=== PATIENT | female | born 1945 | race Caucasian/White ===

== ENCOUNTER 2017-07-17 09:19 | Emergency (ER) | payer MEDICARE, OTHER ==
[2017-07-17 10:25] LABS: BASOPHILS % (AUTO) 0.9 %; EOSINOPHILS # (AUTO) 0.2 10^3/uL (0.0-0.7); HGB - HEMOGLOBIN 13.9 g/dL (12.0-16.0); LYMPHOCYTES # (AUTO) 1.5 10^3/uL (1.5-3.5); LYMPHOCYTES % (AUTO) 28.1 %; MEAN CORPUSCULAR HEMOGLOBIN 31.4 pg (27.0-31.0); MEAN CORPUSCULAR HGB CONC 34.1 g/dL (32.0-36.0); MEAN PLATELET VOLUME 7.7 fL (7.9-10.8); MONOCYTES # (AUTO) 0.4 10^3/uL (0.0-1.0); MONOCYTES % (AUTO) 7.8 %; NEUTROPHILS # (AUTO) 3.3 10^3/uL (1.5-6.6); NEUTROPHILS % (AUTO) 60.2 %; PLT - PLATELET COUNT 168 10^3/uL (130-450); RED BLOOD COUNT 4.43 10^6/uL (4.20-5.40); RED CELL DISTRIBUTION WIDTH 13.8 % (12.0-15.0); WHITE BLOOD COUNT 5.5 x10^3/uL (4.8-10.8)
--- NOTE | 2017-07-17 10:25 | ED Physician Documentation ---
History of Present Illness - Stated complaint Stated Complaint: LOW BP - Chief complaint Chief Complaint: General - Additonal information Additional information: hx from pt 72 female to ER for near syncope states 3 weeks ago her neurologist at [facility] changed her neurontin from 4 C to 5 X daily as well as her 5 X daily sinemet from reg to ER preparation since last week she has had body aches and felt run down today in clici felt faint and had a BP 90/50 and was orthostatic some soa today as well no fever no cough no NVD no bloody black BM no urinary sx Review of Systems Constitutional: reports: Myalgias, Fatigue. denies: Fever, Chills Cardiac: denies: Chest pain / pressure, Palpitations Respiratory: reports: Dyspnea. denies: Cough GI: denies: Abdominal Pain, Nausea, Vomiting, Diarrhea, Bloody / black stool : denies: Dysuria Neurologic: reports: Generalized weakness, Near syncope. denies: Focal weakness , Numbness, Headache PD PAST MEDICAL HISTORY - Past Medical History Cardiovascular: Hypertension, High cholesterol Respiratory: Sleep apnea Neuro: Parkinson's, Other Endocrine/Autoimmune: HyPOthyroidism Musculoskeletal: Chronic back pain Other Past Medical History: hx MAC - Past Surgical History Past Surgical History: Yes General: Colonoscopy Ortho: Knee replacement, Arthroscopic surgery - Present Medications Home Medications: Ambulatory Orders Medication Instructions Recorded Confirmed Clonazepam 2 mg PO DAILY 03/10/13 07/17/17 Levothyroxine Sodium [Synthroid] 100 mcg PO DAILY 03/10/13 07/17/17 Carbidopa/Levodopa 25/100 [Sinemet 07/17/17 25 mg/100 mg] Carbidopa/Levodopa ER 25/100 1.5 tab PO QID #84 tablet 07/17/17 [Sinemet Cr 25 mg/100 mg] Cephalexin [Keflex] 500 mg PO Q6H #28 capsule 07/17/17 Duloxetine HCl [Duloxetine HCl] 07/17/17 Fluticasone [Flonase] 1 sprays ABRIL DAILY 07/17/17 07/17/17 Gabapentin [Gabapentin] 07/17/17 Ropinirole HCl [Ropinirole ER] 2 mg PO 07/17/17 - Allergies Allergies/Adverse Reactions: Allergies Allergy/AdvReac Type Severity Reaction Status Date / Time codeine [Codeine] Allergy Intermediate unknown Verified 03/19/14 18:00 Penicillins Allergy Intermediate unknown Verified 03/19/14 18:00 Sulfa (Sulfonamide Allergy Intermediate unknown Verified 03/19/14 18:00 Antibiotics) iodine Allergy Unknown unknown Verified 03/19/14 18:00 - Social History Does the pt smoke?: No Smoking Status: Never smoker Does the pt drink ETOH?: No Does the pt have substance abuse?: No - Immunizations Immunizations are current?: Yes - POLST Patient has POLST: No PD ED PE NORMAL - Vitals Vital signs reviewed: Yes - General General: Alert and oriented X 3 - HEENT HEENT: PERRL - Neck Neck: Supple, no meningeal sign - Cardiac Cardiac: RRR - Respiratory Respiratory: No respiratory distress - Abdomen Abdomen: Soft, Non tender - Derm Derm: Normal color - Extremities Extremities: No deformity, Other (grace symm edema baseline per pt) - Neuro Neuro: Alert and oriented X 3 Results - Vitals Vitals: Vital Signs - 24 hr 07/17/17 07/17/17 07/17/17 09:22 09:45 10:52 Temperature 36.2 C L Heart Rate 70 66 68 Respiratory 16 18 18 Rate Blood Pressure 116/79 110/75 110/73 O2 Saturation 100 96 99 07/17/17 07/17/17 11:34 13:44 Temperature 36.1 C L Heart Rate 68 68 Respiratory 18 22 Rate Blood Pressure 114/76 131/82 H O2 Saturation 99 100 Oxygen O2 Source Room air - EKG (time done) 0950 Rate: Rate (enter#) Rhythm: Sinus tachycardia [place]: RAD Intervals: Normal [place], Wide QRS (borderline) Ischemia: Normal ST segments - Labs Labs: Laboratory Tests 07/17/17 07/17/17 07/17/17 10:17 10:17 10:17 WBC 5.5 RBC 4.43 Hgb 13.9 Hct 40.8 MCV 92.0 MCH 31.4 H MCHC 34.1 RDW 13.8 Plt Count 168 MPV 7.7 L Neut # 3.3 Lymph # 1.5 [place] # 0.4 Eos # 0.2 Baso # 0.0 Absolute Nucleated RBC 0.00 Nucleated RBC % 0.0 Sodium 139 Potassium 3.8 Chloride 103 Carbon Dioxide 28 Anion Gap 8.0 BUN 39 H Creatinine 1.0 Estimated GFR (MDRD) 55 L Glucose 101 H Calcium 9.6 Troponin I < 0.04 TSH Urine Color Urine Clarity Urine pH Ur Specific [place] Urine Protein Urine Glucose (UA) Urine Ketones Urine Occult Blood Urine Nitrite Urine Bilirubin Urine Urobilinogen Ur Leukocyte Esterase Urine RBC Urine WBC Ur Squamous Epith Cells Urine Bacteria Ur Microscopic Review Urine Culture Comments 07/17/17 07/17/17 10:17 10:35 WBC RBC Hgb Hct MCV MCH MCHC RDW Plt Count MPV Neut # Lymph # [place] # Eos # Baso # Absolute Nucleated RBC Nucleated RBC % Sodium Potassium Chloride Carbon Dioxide Anion Gap BUN Creatinine Estimated GFR (MDRD) Glucose Calcium Troponin I TSH 7.57 H Urine Color YELLOW Urine Clarity CLEAR Urine pH 5.5 Ur Specific [place] >=1.030 H Urine Protein NEGATIVE Urine Glucose (UA) NEGATIVE Urine Ketones TRACE Urine Occult Blood TRACE-INTA Urine Nitrite NEGATIVE Urine Bilirubin NEGATIVE Urine Urobilinogen 0.2 (NORMAL) Ur Leukocyte Esterase TRACE H Urine RBC 0-5 Urine WBC 0-3 Ur Squamous Epith Cells FEW Squamous Urine Bacteria Moderate H Ur Microscopic Review INDICATED Urine Culture Comments INDICATED PD MEDICAL DECISION MAKING - ED course ED course: TSH slightly elev but unlikely mild hypothyroid explains these sx does have a UTI - no fever or leukocytosis sx could also be 2/2 recent med changes d/w her neurologist at [facility] who suggests dec sinemet ER/CR 25/100 take 1.5 pills at 8 noon 4 and 8 and at midnight take the 50/200 Departure - Departure Disposition: 01 Home, Self Care Clinical Impression: Near syncope UTI (urinary tract infection) Qualifiers: Urinary tract infection type: site unspecified Hematuria presence: without hematuria Qualified Code(s): N39.0 - Urinary tract infection, site not specified Adverse effects of medication Qualifiers: Encounter type: initial encounter Qualified Code(s): T88.7XXA - Unspecified adverse effect of drug or medicament, initial encounter Condition: Good Instructions: ED UTI Cystitis Female Prescriptions: Carbidopa/Levodopa ER 25/100 [Sinemet Cr 25 mg/100 mg] 1.5 tab PO QID #84 tablet Cephalexin [Keflex] 500 mg PO Q6H #28 capsule Comments: You have a urine infection. But I think the reason that you felt faint and has a slightly low blood pressure earlier was your new sinemet dose I spoke to your neurologist and she recommends that you take 1.5 sinemet CR 25/ 100 pills (new dose) at 8AM noon 4PM and 8 PM - still take your sinemet CR 50/ 200 (prior dose) at midnight Follow up with your PMD for a blood pressure check tomorrow or Return if worse
[2017-07-17 10:40] LABS: CALCIUM 9.6 mg/dL (8.5-10.3)
[2017-07-17 10:47] LABS: BILIRUBIN,URINE NEGATIVE (NEGATIVE); GLUCOSE, URINE (UA) NEGATIVE (NEGATIVE); KETONES,URINE (UA) TRACE mg/dL (NEGATIVE); LEUKOCYTE ESTERASE, URINE TRACE (NEGATIVE); NITRITE,URINE NEGATIVE (NEGATIVE); OCCULT BLOOD,URINE TRACE-INTA (NEGATIVE); PH,URINE 5.5 PH (5.0-7.5); PROTEIN,URINE NEGATIVE (NEGATIVE); UROBILINOGEN,URINE 0.2 (NORMAL) E.U./dL (NORMAL)
[2017-07-17 10:54] LABS: CLARITY,URINE CLEAR (CLEAR)
[2017-07-17 11:09] LABS: RBC,URINE 0-5 /HPF (0-5); SQUAMOUS EPITHELIAL CELL,UR FEW Squamous (<= Few)
[2017-07-17 11:10] LABS: BACTERIA,URINE Moderate /HPF (None Seen)
[2017-07-17] MEDS ORDERED: SODIUM CHLORIDE 0.9% 1,000 ML IV ONE (12:14)
[2017-07-17] MEDS ORDERED: cefTRIAXone 1 GM in SODIUM CHLORIDE 0.9% MINIBAG 100 ML IV STA (12:14)
[2017-07-17 13:45] VITALS: BP 131/82
== END 2017-07-17 14:12 | disposition home or self-care (01) ==
LOC: ED 09:19
DX: R55 Syncope and collapse (principal); T42.8X5A Adverse effect of antiparkinsonism drugs and other central muscle-tone depressants, initial encounter; N39.0 Urinary tract infection, site not specified; G20 Parkinson's disease; I10 Essential (primary) hypertension; E78.00 Pure hypercholesterolemia, unspecified; E03.9 Hypothyroidism, unspecified
CPT/HCPCS: 36415; 80048; 81001; 81003; 84443; 84484; 85025; 87086; 93005; 96361; 96365; 99284

== ENCOUNTER 2017-07-20 14:15 | Outpatient (CLI) | payer MEDICARE, OTHER | END 2017-07-20 14:16 | disposition EMS.NT | LOC: EMS 14:15 | PROVIDERS: ATTEND Surgery | DX: R42 Dizziness and giddiness (principal) ==

== ENCOUNTER 2017-07-20 15:19 | Emergency (ER) | payer MEDICARE, OTHER ==
[2017-07-20 15:25] VITALS: BP 148/89
--- NOTE | 2017-07-20 16:35 | ED Physician Documentation ---
History of Present Illness - Stated complaint Stated Complaint: WILKINS/DIZZY - Chief complaint Chief Complaint: General - History obtained from History obtained from: Patient, Family - History of Present Illness Timing: Today Pain level max: 0 Pain level now: 0 Improved by: IVF Worsened by: nothing - Additonal information Additional information: Patient is a 72-year-old female who is on Sinemet. Originally she was on 25/ 100 4 times daily and then 50/200 controlled release at night. She was recently changed to 50/200 controlled release 4 times a day and at night. She was very drowsy on this and hypotensive, therefore they decreased it to the 50/ 200 controlled release at night and 25/100 controlled release 4 times a day. She became hypotensive again today and states she does not like the way it makes her feel. She has had no fevers. She was also started on Keflex recently for a possible UTI. She received IV fluids with EMS and her blood pressure returned to normal. She states that she feels better now. Sees Dr. Link at [facility] for neurology. Review of Systems Constitutional: denies: Fever, Chills Ears: denies: Ear pain Nose: denies: Rhinorrhea / runny nose, Congestion Throat: denies: Sore throat Cardiac: denies: Chest pain / pressure Respiratory: denies: Cough GI: denies: Abdominal Pain, Nausea, Vomiting, Diarrhea Skin: denies: Rash Musculoskeletal: denies: Neck pain, Back pain Neurologic: reports: Headache (had a headache earlier, now resolved.) PD PAST MEDICAL HISTORY - Past Medical History Cardiovascular: Hypertension, High cholesterol Respiratory: Sleep apnea Neuro: Parkinson's, Other Endocrine/Autoimmune: HyPOthyroidism Musculoskeletal: Chronic back pain - Past Surgical History Past Surgical History: Yes General: Colonoscopy Ortho: Knee replacement, Arthroscopic surgery - Present Medications Home Medications: Ambulatory Orders Medication Instructions Recorded Confirmed Cephalexin [Keflex] 500 mg PO Q6H #28 capsule 07/17/17 07/20/17 Duloxetine HCl [Duloxetine HCl] 30 mg PO DAILY 07/17/17 07/20/17 Fluticasone [Flonase] 1 sprays ABRIL DAILY 07/17/17 07/20/17 Gabapentin [Gabapentin] 300 mg PO TID 07/17/17 07/20/17 Ropinirole HCl [Ropinirole ER] 2 mg PO BID 07/17/17 07/20/17 Acetaminophen [Tylenol] 325 mg PO Q4H PRN 07/20/17 07/20/17 Albuterol 2.5 mg INH Q4H PRN 07/20/17 07/20/17 Amantadine HCl [Amantadine] 100 mg PO BID 07/20/17 07/20/17 Carbidopa/Levodopa ER 25/100 1.5 tab PO 0800,1200,1600,2000 07/20/17 07/20/17 [Sinemet Cr 25 mg/100 mg] Carbidopa/Levodopa [Carbidopa-Levo 1 tab PO 0000 07/20/17 07/20/17 ER 50-200 Tab] Docusate Calcium [Surfak] 240 mg PO BID PRN 07/20/17 07/20/17 Levothyroxine [Synthroid] 100 mcg PO QDAC 07/20/17 07/20/17 clonazePAM [Clonazepam] 1 mg PO QPM 07/20/17 07/20/17 - Allergies Allergies/Adverse Reactions: Allergies Allergy/AdvReac Type Severity Reaction Status Date / Time codeine [Codeine] Allergy Intermediate unknown Verified 03/19/14 18:00 Penicillins Allergy Intermediate unknown Verified 03/19/14 18:00 Sulfa (Sulfonamide Allergy Intermediate unknown Verified 03/19/14 18:00 Antibiotics) iodine Allergy Unknown unknown Verified 03/19/14 18:00 - Social History Does the pt smoke?: No Smoking Status: Never smoker Does the pt drink ETOH?: No Does the pt have substance abuse?: No - Immunizations Immunizations are current?: Yes - POLST Patient has POLST: No PD ED PE NORMAL - Vitals Vital signs reviewed: Yes - General General: Alert and oriented X 3, No acute distress, Well developed/nourished - HEENT HEENT: PERRL, Moist mucous membranes - Neck Neck: Supple, no meningeal sign - Cardiac Cardiac: RRR, Strong equal pulses - Respiratory Respiratory: No respiratory distress, Clear bilaterally - Abdomen Abdomen: Soft, Non tender, Non distended - Derm Derm: Warm and dry, No rash - Extremities Extremities: No edema - Neuro Neuro: Alert and oriented X 3 - Psych Psych: Normal mood, Normal affect Results - Vitals Vitals: Vital Signs - 24 hr 07/20/17 15:22 Temperature 36.4 C L Heart Rate 75 Respiratory 14 Rate Blood Pressure 148/89 H O2 Saturation 95 Oxygen O2 Source Room air PD MEDICAL DECISION MAKING - ED course Complexity details: reviewed old records, considered differential, d/w patient, d/w family, d/w architecture consultant ED course: Patient is a 72-year-old female who presents to the emergency department with hypotension after multiple changes regarding her recent medications. Urine culture was checked from 2 days ago and shows contaminated urinalysis. She has no symptoms consistent with a UTI, will stop the antibiotics. Also discussed the case with the nurse practitioner production support manager for her neurologist, who recommends decreasing the daytime doses to 25/100 controlled release 3 times a day. We will see how she functions on this. Patient and are comfortable with this plan. She is asymptomatic currently. Patient and family counseled regarding signs and symptoms for which I believe and urgent re- evaluation would be necessary. Patient with good understanding of and agreement to plan and is comfortable going home at this time This document was made in part using voice recognition software. While efforts are made to proofread this document, sound alike and grammatical errors may occur. Departure - Departure Disposition: 01 Home, Self Care Clinical Impression: Hypotension Qualifiers: Hypotension type: unspecified hypotension type Qualified Code(s): I95.9 - Hypotension, unspecified Adverse effects of medication Qualifiers: Encounter type: initial encounter Qualified Code(s): T88.7XXA - Unspecified adverse effect of drug or medicament, initial encounter Condition: Good Instructions: ED Hypotension All Causes Follow-Up: SANDY BURGOS MD [Primary Care Provider] - Within 1 week Comments: Decrease the sinemet to 1 tablet 25/100 CR 3 times per day and see how this does for you. stop the keflex. Follow up with your doctor next week. I spoke with Dr. Link's nurse practitioner today. Discharge Date/Time: 07/20/17 16:48
== END 2017-07-20 16:48 | disposition home or self-care (01) ==
LOC: ED 15:19
DX: I95.9 Hypotension, unspecified (principal); T42.8X5A Adverse effect of antiparkinsonism drugs and other central muscle-tone depressants, initial encounter; I10 Essential (primary) hypertension; E78.00 Pure hypercholesterolemia, unspecified; E03.9 Hypothyroidism, unspecified; G20 Parkinson's disease; Z96.659 Presence of unspecified artificial knee joint
CPT/HCPCS: 99283

== ENCOUNTER 2018-08-08 14:48 | Emergency (ER) | payer MEDICARE, OTHER ==
[2018-08-08 15:10] VITALS: BP 100/68
[2018-08-08] MEDS ORDERED: LIDOCAINE 1%-EPI 1:100000 30 ML MDV SUBQ STA (15:32)
--- NOTE | 2018-08-08 15:34 | ED Physician Documentation ---
PD HPI ABD PAIN - Stated complaint Stated Complaint: FEMALE - Chief complaint Chief Complaint: Abd Pain - History obtained from History obtained from: Patient - History of Present Illness Timing - onset: Today (Acutely at 4 AM she developed rectal pain, thinks she has a thrombosed hemorrhoid.) Review of Systems Constitutional: reports: Reviewed and negative Cardiac: reports: Reviewed and negative Respiratory: reports: Reviewed and negative PD PAST MEDICAL HISTORY - Past Medical History Cardiovascular: Hypertension, High cholesterol Respiratory: Sleep apnea Endocrine/Autoimmune: HyPOthyroidism Musculoskeletal: Chronic back pain - Past Surgical History Past Surgical History: Yes General: Colonoscopy Ortho: Knee replacement, Arthroscopic surgery - Present Medications Home Medications: Ambulatory Orders Medication Instructions Recorded Confirmed Cephalexin [Keflex] 500 mg PO Q6H #28 capsule 07/17/17 07/20/17 Duloxetine HCl 30 mg PO DAILY 07/17/17 07/20/17 Fluticasone [Flonase] 1 sprays ABRIL DAILY 07/17/17 07/20/17 Gabapentin 300 mg PO TID 07/17/17 07/20/17 Ropinirole HCl [Ropinirole ER] 2 mg PO BID 07/17/17 07/20/17 Acetaminophen [Tylenol] 325 mg PO Q4H PRN 07/20/17 07/20/17 Albuterol 2.5 mg INH Q4H PRN 07/20/17 07/20/17 Amantadine HCl [Amantadine] 100 mg PO BID 07/20/17 07/20/17 Carbidopa/Levodopa ER 25/100 1.5 tab PO 0800,1200,1600,2000 07/20/17 07/20/17 [Sinemet Cr 25 mg/100 mg] Carbidopa/Levodopa [Carbidopa-Levo 1 tab PO 0000 07/20/17 07/20/17 ER 50-200 Tab] Docusate Calcium [Surfak] 240 mg PO BID PRN 07/20/17 07/20/17 Levothyroxine [Synthroid] 100 mcg PO QDAC 07/20/17 07/20/17 clonazePAM [Clonazepam] 1 mg PO QPM 07/20/17 07/20/17 - Allergies Allergies/Adverse Reactions: Allergies Allergy/AdvReac Type Severity Reaction Status Date / Time codeine [Codeine] Allergy Intermediate unknown Verified 08/08/18 15:10 Penicillins Allergy Intermediate unknown Verified 08/08/18 15:10 Sulfa (Sulfonamide Allergy Intermediate unknown Verified 08/08/18 15:10 Antibiotics) iodine Allergy Unknown unknown Verified 08/08/18 15:10 - Living Situation Living Situation: reports: With spouse/s.o. - Social History Does the pt smoke?: No Smoking Status: Never smoker Does the pt drink ETOH?: No Does the pt have substance abuse?: No - Immunizations Immunizations are current?: Yes - POLST Patient has POLST: No PD ED PE NORMAL - Vitals Vital signs reviewed: Yes - General General: Alert and oriented X 3, No acute distress - Abdomen Abdomen: Normal bowel sounds, Soft, Non tender - Female Female : Other (1 cm thrombosed left-sided external hemorrhoid) - Neuro Neuro: Alert and oriented X 3, Normal speech - Psych Psych: Normal mood, Normal affect Results - Vitals Vitals: Vital Signs - 24 hr 08/08/18 15:06 Temperature 36.7 C Heart Rate 103 H Respiratory 18 Rate Blood Pressure 100/68 O2 Saturation 95 Oxygen O2 Source Room air Procedures - General procedure General procedure: After discussion of risks and benefits and verbal informed consent the thrombosed hemorrhoid was injected in the base with about 5 mL of lidocaine with epinephrine with excellent anesthetic and then a Curved lenticular incision was made and the clot was expressed Departure - Departure Disposition: 01 Home, Self Care Clinical Impression: Thrombosed hemorrhoids Condition: Good Record reviewed to determine appropriate education?: Yes Instructions: ED Hemorrhoids Comments: Call your doctor to arrange a follow-up appointment, make the next available appointment. In the interim, return anytime if worse or if new symptoms develop.
== END 2018-08-08 16:37 | disposition home or self-care (01) ==
LOC: ED 14:48
DX: K64.5 Perianal venous thrombosis (principal); I10 Essential (primary) hypertension; E78.00 Pure hypercholesterolemia, unspecified; E03.9 Hypothyroidism, unspecified; Z96.659 Presence of unspecified artificial knee joint
CPT/HCPCS: 46083; 99282; 99283

== ENCOUNTER 2019-02-10 11:53 | Emergency (ER) | payer MEDICARE, OTHER ==
--- NOTE | 2019-02-10 12:56 | ED Physician Documentation ---
PD HPI Fall - Stated complaint Stated Complaint: NOSE LAC/GLF - Chief complaint Chief Complaint: Laceration - History obtained from History obtained from: Patient, Family - History of Present Illness Mechanism of injury: Tripped Fall distance: Standing position Where injury occurred: Home Timing - onset: Today Injury(ies) location: Face, Neck Quality of pain: Pain Associated symptoms: Neck pain. No: LOC, AMS, Amnesia, Seizures, Ear drainage, Nasal drainage, Weakness, Paresthesias, Dyspnea, Nausea / vomiting, Hematemesis, Abdominal distension Symptoms improve with: Rest Worsens with: Movement, Palpation Contributing factors: No: Anticoagulated Similar symptoms before: Diagnosis (fall parkinsons) Recently seen: Not recently seen - Additional information Additional information: 74-year-old female with a history of Parkinson's disease has had multiple falls previously she was in her bathroom today picked up a towel to bring it into the laundry room she twisted and this is when she usually will become dizzy she collapsed and fell onto her face. She did not have loss of consciousness she denies any current headache or nausea or dizziness. She does have an abrasion to the nasal bridge and some pain in the left side of her neck as well as some pain around the left eye. Review of Systems Constitutional: reports: Fatigue. denies: Fever, Chills Eyes: reports: Other (chronic diplopia). denies: Decreased vision Ears: denies: Ear pain Nose: reports: Other (nasal bridge laceration). denies: Rhinorrhea / runny nose Throat: denies: Sore throat Cardiac: denies: Chest pain / pressure, Palpitations Respiratory: denies: Dyspnea, Cough GI: reports: Diarrhea (2 days ago). denies: Abdominal Pain, Nausea : denies: Dysuria, Frequency Skin: reports: Laceration (s). denies: Rash Musculoskeletal: reports: Neck pain. denies: Back pain, Extremity pain Neurologic: reports: Head injury. denies: Generalized weakness, Focal weakness, Numbness, Difficulty speaking, Confused, Altered mental status, Headache, LOC PD PAST MEDICAL HISTORY - Past Medical History Cardiovascular: Hypertension, High cholesterol Respiratory: Sleep apnea Endocrine/Autoimmune: HyPOthyroidism Musculoskeletal: Chronic back pain - Past Surgical History Past Surgical History: Yes General: Colonoscopy Ortho: Knee replacement, Arthroscopic surgery - Present Medications Home Medications: Ambulatory Orders Medication Instructions Recorded Confirmed Cephalexin [Keflex] 500 mg PO Q6H #28 capsule 07/17/17 07/20/17 Duloxetine HCl 30 mg PO DAILY 07/17/17 07/20/17 Fluticasone [Flonase] 1 sprays ABRIL DAILY 07/17/17 07/20/17 Gabapentin 300 mg PO TID 07/17/17 07/20/17 Ropinirole HCl [Ropinirole ER] 2 mg PO BID 07/17/17 07/20/17 Acetaminophen [Tylenol] 325 mg PO Q4H PRN 07/20/17 07/20/17 Amantadine HCl [Amantadine] 100 mg PO BID 07/20/17 07/20/17 Carbidopa/Levodopa ER 25/100 1.5 tab PO 0800,1200,1600,2000 07/20/17 07/20/17 [Sinemet Cr 25 mg/100 mg] Carbidopa/Levodopa [Carbidopa-Levo 1 tab PO 0000 07/20/17 07/20/17 ER 50-200 Tab] Docusate Calcium [Surfak] 240 mg PO BID PRN 07/20/17 07/20/17 Levothyroxine [Synthroid] 100 mcg PO QDAC 07/20/17 07/20/17 RX: Albuterol 2.5 mg INH Q4H PRN 07/20/17 07/20/17 clonazePAM [Clonazepam] 1 mg PO QPM 07/20/17 07/20/17 Hydrocodone/Acetaminophen 1 - 2 each PO Q6H PRN #14 tablet 02/10/19 [Hydrocodon-Acetaminophen 5-325] - Allergies Allergies/Adverse Reactions: Allergies Allergy/AdvReac Type Severity Reaction Status Date / Time codeine [Codeine] Allergy Intermediate unknown Verified 02/10/19 12:26 Penicillins Allergy Intermediate unknown Verified 02/10/19 12:26 Sulfa (Sulfonamide Allergy Intermediate unknown Verified 02/10/19 12:26 Antibiotics) iodine Allergy Unknown unknown Verified 02/10/19 12:26 - Social History Does the pt smoke?: No Smoking Status: Never smoker Does the pt drink ETOH?: No Does the pt have substance abuse?: No - Immunizations Immunizations are current?: Yes - POLST Patient has POLST: No PD ED PE NORMAL - Vitals Vital signs reviewed: Yes (hypertensive ) - General General: Alert and oriented X 3, No acute distress, Well developed/nourished - HEENT HEENT: PERRL, EOMI, Other ( There is a bruise to the nasal bridge with an evident laceration. There is swelling to the left jing-orbital tissues with te nderness along the orbital rim and not the zygomatic arch. ) - Neck Neck: Supple, no meningeal sign, Other (There is left sided point tenderness to the cervical spine at the C5 level. There is good ROM of the neck but with pain. rated 8/10. ) - Respiratory Respiratory: No respiratory distress - Derm Derm: Normal color, Warm and dry, No rash - Extremities Extremities: No deformity, No edema - Neuro Neuro: Alert and oriented X 3, law enforcement director 2-12 intact, No motor deficit, No sensory deficit, Normal speech Eye Opening: Spontaneous Motor: Obeys Commands Verbal: Oriented GCS Score: 15 - Psych Psych: Normal mood, Normal affect Results - Vitals Vitals: Vital Signs - 24 hr 02/10/19 02/10/19 02/10/19 12:01 12:24 14:11 Temperature 36.9 C 36.4 C L 36.3 C L Heart Rate 75 72 70 Respiratory 18 16 18 Rate Blood Pressure 147/107 H 165/92 H 143/84 H O2 Saturation 96 93 97 02/10/19 15:23 Temperature 37.2 C Heart Rate 67 Respiratory 18 Rate Blood Pressure 144/80 H O2 Saturation 100 Oxygen O2 Source Room air - Rads (name of study) cervical spine Radiology: Prelim report reviewed (Impression: 1. Negative for acute fracture and subluxation of cervical spine. 2. Moderate degenerative disc disease at C5 C7), EMP read indepedently, See rad report facial bones Radiology: Prelim report reviewed (Impression: 1. Anterior nasal bone fracture.2 Nasal and left forehead soft tissue swelling. 3 okay no orbit fracture.) Procedures - IVC sono (time) 1250 Bedside IVC sono: IVC measures (cm) (1.2), IVC collapsed c insp (cm) (0.6), Dehydration (minimal without complete collapse.) PD MEDICAL DECISION MAKING - ED course Complexity details: reviewed old records, reviewed results, re-evaluated patient, considered differential, d/w patient, d/w family ED course: 74 y/o female with parkinsons and falls. She has fallen on her face today and has pain in the neck and around the left periorbital area with a deep abrasion to the nasal bridge. Her abrasion is closed with dermabond and she has no fractures to the rest of the face or neck. She does have neck pain. . Departure - Departure Disposition: 01 Home, Self Care Clinical Impression: Nasal bone fracture, Nasal laceration, Cervical strain, acute, Contusion of face Condition: Stable Instructions: ED Contusion Face, ED Fx Nose W Lac Skin Glue, ED Sprain Strain Neck Follow-Up: [facility] [Provider Group] Prescriptions: Hydrocodone/Acetaminophen [Hydrocodon-Acetaminophen 5-325] 1 - 2 each PO Q6H PRN #14 tablet PRN Reason: pain Discharge Date/Time: 02/10/19 15:23
--- NOTE | 2019-02-10 14:03 | CT Report ---
Reason: fall facial injury and left neck pain Procedure Date: 02/10/2019 Accession Number: [id number] / [id number] Procedure: CT - CERVICAL SPINE WO CPT Code: FULL RESULT: EXAM: CT CERVICAL SPINE WITHOUT CONTRAST DATE: 02/10/2019 01:42 PM. HISTORY: Fall facial injury and left neck pain. COMPARISONS: HEAD W/O 03/04/2014 11:02 PM. TECHNIQUE: Thin-section axial images were acquired of the cervical spine without contrast. Post-processing: Coronal and sagittal reformats. Other: None. In accordance with CT protocol optimization, one or more of the following dose reduction techniques were utilized for this exam: automated exposure control, adjustment of mA and/or KV based on patient size, or use of iterative reconstructive technique. FINDINGS: Alignment: No scoliosis or spondylolisthesis. Bones: Negative for an acute fracture. There is multilevel degenerative disease. Interspace Levels/Facets: There is moderate disk height loss at C5-C6 and C6-C7. There is degenerative disease with joint space narrowing and spurring at the anterior C1 and C2 articulation. Musculature: Normal. No fatty atrophy. Other: The paravertebral and prevertebral soft tissues are unremarkable. The lung apices are clear. IMPRESSION: 1. Negative for acute fracture and subluxation of cervical spine. 2. Moderate degenerative disk disease at C5-C7. [facility]
[2019-02-10] MEDS ORDERED: ACETAMINOPHEN 325 MG TABLET PO STA (14:15)
--- NOTE | 2019-02-10 14:41 | CT Report ---
Reason: fall left orbital/periorbital pain Procedure Date: 02/10/2019 Accession Number: [id number] / [id number] Procedure: CT - MAXILLOFACIAL WO CPT Code: FULL RESULT: EXAM: CT MAXILLOFACIAL WITHOUT CONTRAST EXAM DATE: 02/10/2019 01:42 PM. CLINICAL HISTORY: Fall left orbital/periorbital pain. COMPARISONS: HEAD W/O 03/04/2014 11:02 PM. TECHNIQUE: Thin-section axial images were acquired of the face without contrast. Post-processing: Coronal and sagittal reformats. Other: None. In accordance with CT protocol optimization, one or more of the following dose reduction techniques were utilized for this exam: automated exposure control, adjustment of mA and/or KV based on patient size, or use of iterative reconstructive technique. FINDINGS: Soft Tissue: There is soft tissue swelling over the anterior nose and left forehead. No soft tissue foreign body. There is soft tissue gas anterior to the nasal bone. Orbits: Symmetric and unremarkable. Bones: There is an acute fracture of the anterior nasal bone. No orbital or maxillary fracture. Temporomandibular Joints: The temporomandibular joints are symmetric and normally located. Sinuses: Normal. No mucosal thickening or fluid levels. Other: Anterior nasal bone fracture. IMPRESSION: 1. Anterior nasal bone fracture. 2. Nasal and left forehead soft tissue swelling. 3. No orbital fracture. [facility]
[2019-02-10 15:24] VITALS: BP 144/80
== END 2019-02-10 15:23 | disposition home or self-care (01) ==
LOC: ED 11:53
DX: S02.2XXA Fracture of nasal bones, initial encounter for closed fracture (principal); S01.21XA Laceration without foreign body of nose, initial encounter; S16.1XXA Strain of muscle, fascia and tendon at neck level, initial encounter; S00.83XA Contusion of other part of head, initial encounter; W01.0XXA Fall on same level from slipping, tripping and stumbling without subsequent striking against object, initial encounter; Y92.002 Bathroom of unspecified non-institutional (private) residence as the place of occurrence of the external cause; G20 Parkinson's disease; Z91.81 History of falling; E86.0 Dehydration; I10 Essential (primary) hypertension; M50.322 Other cervical disc degeneration at C5-C6 level
CPT/HCPCS: 70486; 72125; 99284; A9270

== ENCOUNTER 2019-07-24 15:26 | Outpatient (CLI) | payer MEDICARE, OTHER | END 2019-07-24 15:27 | disposition EMS.NT | LOC: EMS 15:26 | PROVIDERS: ATTEND Surgery | DX: R55 Syncope and collapse (principal) ==

== ENCOUNTER 2023-03-07 21:12 | Outpatient (CLI) | payer MEDICARE, OTHER | END 2023-03-07 21:13 | disposition EMS.NT | LOC: EMS 21:12 | DX: R45.89 Other symptoms and signs involving emotional state (principal) ==

== ENCOUNTER 2023-03-08 10:44 | Outpatient (CLI) | payer MEDICARE, OTHER ==
--- NOTE | 2023-03-08 15:56 | CT Report ---
PROCEDURE: PELVIS WO INDICATIONS: URETERIC STONE TECHNIQUE: Noncontrast 3 mm axial sections acquired through the bony pelvis, with coronal and sagittal reformatt ing. For radiation dose reduction, the following was used: automated exposure control, adjustment of mA and/or kV according to patient size. COMPARISON: CT 02/21/2023. FINDINGS: Image quality: Excellent. Bones: Posterior and interbody surgical fusion at L4-5, without hardware convocation. No aggressive osseous abnormality. Soft tissues: Interval passage of the right UVJ stone. Similar hyperattenuating right renal lesion w ith homogeneous attenuation measuring 1.3 cm (series 2, image 1). Colonic diverticulosis without evid ence of diverticulitis. Left kidney is unremarkable. No hydronephrosis. Visualized gallbladder contai ns sludge versus stones. IMPRESSION: Interval passage of the right UVJ stone. No hydronephrosis. Similar exophytic lesion on the medial pole of the right kidney. Recommend nonemergent ultrasound for further characterization. Reviewed by: Bryon Leiva on 03/08/2023 3:54 PM PDT Approved by: Bryon Leiva on 03/08/2023 3:54 PM PDT Station ID: [id number]
== END 2023-03-08 10:45 | disposition home or self-care (01) ==
LOC: DI 10:44
PROVIDERS: ATTEND Urology
DX: N28.9 Disorder of kidney and ureter, unspecified (principal)